=== PATIENT | female | born 1960 | race Caucasian/White ===

== ENCOUNTER 2024-03-29 08:30 | Inpatient (IN) | payer OTHER ==
[~2024-03-29] VITALS: Ht 170.2 cm; Wt 58.5 kg
[2024-03-29 10:10] LABS: APTT 30 SECONDS (22-32); BASOPHILS % (AUTO) 0.7 % (0-1); EOSINOPHILS % (AUTO) 0.2 % (0-6); HEMATOCRIT 30.8 % (35.0-45.0); HEMOGLOBIN 10.5 g/dl (12.0-16.0); INR 1.1 INR; LYMPHOCYTES # (AUTO) 0.5 X10'3 (1.1-4.8); LYMPHOCYTES % (AUTO) 9.2 % (21-51); MEAN CORPUSCULAR HEMOGLOBIN 34.5 PG (27.0-31.0); MEAN CORPUSCULAR HGB CONC 34.2 g/dL (33.0-36.5); MEAN CORPUSCULAR VOLUME 100.8 FL (78-98); MEAN PLATELET VOLUME 6.7 FL (7.4-10.4); MONOCYTES # (AUTO) 0.5 X10'3 (0-0.9); NEUTROPHILS # (AUTO) 4.7 X10'3 (1.8-7.7); NEUTROPHILS % (AUTO) 80.9 % (42-75); PLATELET COUNT 290 X10'3 (140-440); PROTHROMBIN TIME 11.9 SECONDS (9.0-12.0); RED BLOOD COUNT 3.05 X10'6 (4.20-5.60); RED CELL DISTRIBUTION WIDTH 13.7 % (11.5-14.5); WHITE BLOOD COUNT 5.8 X10'3 (4.5-11.0)
[2024-03-29 10:12] LABS: ALBUMIN 3.1 G/DL (3.4-5.0); ANION GAP 7 (8-16); BLOOD UREA NITROGEN 15 MG/DL (7-18); CALCIUM 8.9 MG/DL (8.5-10.1); CHLORIDE 93 MMOL/L (99-107); CREATININE 0.75 MG/DL (0.40-0.90); GLUCOSE 129 MG/DL (70-104); POTASSIUM 4.1 MMOL/L (3.5-5.1); SODIUM 128 MMOL/L (135-145); eCRCL 72 ML/MIN; eGFR 78 ML/MIN
[2024-03-29] MEDS ORDERED: HYDR-3973 PO (10:52)
[2024-03-29] MEDS ORDERED: LISI1TAB49 PO (10:52)
[2024-03-29] MEDS ORDERED: ACET-2119 PO (10:52)
[2024-03-29] MEDS ORDERED: potassium Cl 20 mEq SR tablet PO PRN ×2 (11:10)
[2024-03-29] MEDS ORDERED: potassium Cl 40MEQ/1/2NS 520ml 520 ML IV PRN (11:10)
[2024-03-29] MEDS ORDERED: acetaminophen 325mg tablet PO PRN (11:10)
[2024-03-29] MEDS ORDERED: mag hydrox/Alum hydrox/simeth 30ml oral suspension PO PRN (11:10)
[2024-03-29] MEDS ORDERED: magnesium hydroxide 30ml (MOM) UD suspension PO PRN (11:10)
[2024-03-29] MEDS: ondansetron/PF 4mg/2ml inj IV PRN (11:26)
[2024-03-29] MEDS: morphine 2 MG/ML inj. syringe IV PRN (11:26)
[2024-03-29] MEDS ORDERED: MIRA50TA PO (11:30)
[2024-03-29] MEDS: normal saline 1000ml 1,000 ML IV SCH (11:54)
[2024-03-29 12:08] LABS: BILIRUBIN,URINE NEGATIVE (Neg); CLARITY,URINE CLEAR (Clear); COLOR,URINE YELLOW (Yellow); GLUCOSE, URINE NEGATIVE (Neg); KETONES,URINE NEGATIVE (Neg); LEUKOCYTE ESTERASE ,URINE NEGATIVE (Neg); NITRITES, URINE NEGATIVE (Neg); OCCULT BLOOD,URINE NEGATIVE (Neg); PROTEIN,URINE NEGATIVE (Neg)
[2024-03-29 12:13] LABS: UA COLLECTION TYPE NON-SPECIFIED
[2024-03-29] MEDS ORDERED: hydrALAZINE 20mg/ml inj. IV PRN (12:50)
[2024-03-29 13:37] LABS: OSMOLALITY 270 MOSM/K (280-300)
[2024-03-29] MEDS: HYDROmorphone inj. 0.5 MG/0.5 ML DISP.SYRIN IV PRN (14:50)
[2024-03-29] MEDS: vancomycin/NS 1 GM ADD-VANTAGE 250 ML IV ONE (17:50)
[2024-03-29] MEDS: ringers solution, lacted 1,000 ML IV ONE (19:56)
[2024-03-29] MEDS: K and/or MAG REPLACEMENT MC SCH (20:00)
[2024-03-29] MEDS: docusate sod 100mg capsule PO SCH (20:04)
[2024-03-29] MEDS: nicotine 14mg patch - 24hr TD ONE (23:35)
[2024-03-30] VITALS (20 sets, daily range): BP systolic 98–161; BP diastolic 59–104; PULSE 63–102; RESP 11–21; TEMP 97.2–97.7; O2SAT 93–100
[2024-03-30 02:33] LABS: BASOPHILS % (AUTO) 0.6 % (0-1); EOSINOPHILS # (AUTO) 0.1 X10'3 (0-0.9); EOSINOPHILS % (AUTO) 1.8 % (0-6); HEMOGLOBIN 8.4 g/dl (12.0-16.0); LYMPHOCYTES # (AUTO) 0.8 X10'3 (1.1-4.8); LYMPHOCYTES % (AUTO) 19.8 % (21-51); MEAN CORPUSCULAR HEMOGLOBIN 34.6 PG (27.0-31.0); MEAN CORPUSCULAR HGB CONC 33.4 g/dL (33.0-36.5); MEAN CORPUSCULAR VOLUME 103.5 FL (78-98); MEAN PLATELET VOLUME 6.8 FL (7.4-10.4); MONOCYTES # (AUTO) 0.4 X10'3 (0-0.9); MONOCYTES % (AUTO) 10.4 % (2-12); NEUTROPHILS # (AUTO) 2.6 X10'3 (1.8-7.7); NEUTROPHILS % (AUTO) 67.4 % (42-75); PLATELET COUNT 238 X10'3 (140-440); RED BLOOD COUNT 2.42 X10'6 (4.20-5.60); RED CELL DISTRIBUTION WIDTH 13.6 % (11.5-14.5); WHITE BLOOD COUNT 3.9 X10'3 (4.5-11.0)
[2024-03-30 03:02] LABS: ALANINE AMINOTRANSFERASE 32 U/L (12-78); ALBUMIN 1.9 G/DL (3.4-5.0); ALBUMIN/GLOBULIN RATIO 0.6 (1.1-1.5); ALKALINE PHOSPHATASE 117 IU/L (46-116); ANION GAP 5 (8-16); ASPARTATE AMINO TRANSFERASE 56 U/L (10-37); BILIRUBIN,TOTAL 0.7 MG/DL (0.1-1.0); BLOOD UREA NITROGEN 13 MG/DL (7-18); CALCIUM 6.5 MG/DL (8.5-10.1); CHLORIDE 106 MMOL/L (99-107); CREATININE 0.65 MG/DL (0.40-0.90); GLUCOSE 100 MG/DL (70-104); POTASSIUM 3.5 MMOL/L (3.5-5.1); SODIUM 135 MMOL/L (135-145); TOTAL CARBON DIOXIDE 24.5 MMOL/L (24-32); TOTAL PROTEIN 4.9 G/DL (6.4-8.2); eCRCL 83 ML/MIN; eGFR > 90 ML/MIN
[2024-03-30] MEDS: magnesium sulf-water 2g/50mL 50 ML IV PRN (03:34)
[2024-03-30] MEDS: nicotine 14mg patch - 24hr TD ONE (04:40)
[2024-03-30] MEDS ORDERED: ATEN-169 PO (06:23)
[2024-03-30] MEDS: magnesium sulf-water 4G/100mL 100 ML IV PRN (06:25)
[2024-03-30] MEDS: famotidine 20mg tablet PO ONE (06:25)
[2024-03-30] MEDS ORDERED: morphine 2 MG/ML inj. syringe IV PRN (06:45)
[2024-03-30] MEDS ORDERED: labetalol 20mg/4ml (5mg/ml) syringe IV PRN (06:45)
[2024-03-30] MEDS ORDERED: ondansetron/PF 4mg/2ml inj IV PRN (06:45)
[2024-03-30] MEDS ORDERED: fentaNYL/PF 50MCG/1 ML 2ML syringe IV PRN ×2 (06:45)
[2024-03-30] MEDS ORDERED: hydrALAZINE 20mg/ml inj. IV PRN (06:45)
[2024-03-30] MEDS: ringers solution, lacted 1,000 ML IV SCH (07:36)
[2024-03-30] MEDS: ceFAZolin 2gm in dextrose, iso 50 ML IV ONE (07:37)
[2024-03-30] MEDS ORDERED: sevoflurane 250ml liquid IH ONE (08:18)
[2024-03-30] MEDS ORDERED: fentaNYL/PF 50MCG/1 ML 2ML syringe ONE (08:24)
[2024-03-30] MEDS ORDERED: midazolam 1 mg/ML 2ml injection ONE (08:25)
[2024-03-30] MEDS ORDERED: rocuronium 10mg/ml inj IV ONE (08:26)
[2024-03-30] MEDS ORDERED: dexamethasone sod phosphate 4mg/ml inj. ONE (09:29)
[2024-03-30] MEDS ORDERED: propofol inj 20 ML IV ONE (09:29)
[2024-03-30] MEDS ORDERED: albumin (Human) 5% 250ml 250 ML IV ONE (09:30)
[2024-03-30] MEDS ORDERED: vancomycin 1,000mg inj ONE (10:16)
[2024-03-30] MEDS ORDERED: naloxone 0.4 mg/ml inj IV PRN (10:50)
[2024-03-30] MEDS ORDERED: NORMAL SALINE IV ONE (10:50)
[2024-03-30] MEDS ORDERED: TRANEXAMIC ACID IV ONE (10:50)
[2024-03-30] MEDS: morphine 4 MG/ML inj SYRINge IV PRN (11:34)
[2024-03-30] MEDS ORDERED: acetaminophen 325mg tablet PO PRN (11:55)
[2024-03-30] MEDS ORDERED: HYDROcodone/acetaminophen 10/325mg tab PO PRN (11:55)
[2024-03-30] MEDS: NORMAL SALINE IV ONE (14:08)
[2024-03-30] MEDS: TRANEXAMIC ACID IV ONE (14:08)
[2024-03-30] MEDS: HYDROcodone/acetaminophen 10/325mg tab PO PRN (15:52)
[2024-03-30] MEDS: ceFAZolin/D5W- 1GM premix 50 ML IV SCH (16:21)
[2024-03-30] MEDS: heparin, porcine 5000 units/ml vial SQ SCH (20:00)
[2024-03-30] MEDS: MYRBETRIC 50 MG PO SCH (21:00)
[2024-03-30] MEDS: vancomycin/NS 1 GM ADD-VANTAGE 250 ML IV SCH (21:09)
[2024-03-31 02:03] VITALS: BP 89/70; PULSE 79; RESP 16; TEMP 98.5; O2SAT 94
[2024-03-31 06:02] LABS: BASOPHILS # (AUTO) 0.1 X10'3 (0-0.2); BASOPHILS % (AUTO) 0.8 % (0-1); EOSINOPHILS % (AUTO) 0.2 % (0-6); HEMATOCRIT 23.9 % (35.0-45.0); HEMOGLOBIN 8.1 g/dl (12.0-16.0); LYMPHOCYTES # (AUTO) 0.8 X10'3 (1.1-4.8); LYMPHOCYTES % (AUTO) 10.6 % (21-51); MEAN PLATELET VOLUME 7.1 FL (7.4-10.4); MONOCYTES # (AUTO) 0.5 X10'3 (0-0.9); MONOCYTES % (AUTO) 7.1 % (2-12); NEUTROPHILS # (AUTO) 5.8 X10'3 (1.8-7.7); NEUTROPHILS % (AUTO) 81.3 % (42-75); PLATELET COUNT 241 X10'3 (140-440); RED BLOOD COUNT 2.32 X10'6 (4.20-5.60); RED CELL DISTRIBUTION WIDTH 13.7 % (11.5-14.5); WHITE BLOOD COUNT 7.1 X10'3 (4.5-11.0)
[2024-03-31 06:29] LABS: ALBUMIN 2.4 G/DL (3.4-5.0); ALBUMIN/GLOBULIN RATIO 0.7 (1.1-1.5); ANION GAP 7 (8-16); ASPARTATE AMINO TRANSFERASE 48 U/L (10-37); BILIRUBIN,TOTAL 0.4 MG/DL (0.1-1.0); BLOOD UREA NITROGEN 13 MG/DL (7-18); BUN/CREATININE RATIO 12.4 (10.0-20.0); CALCIUM 8.6 MG/DL (8.5-10.1); CHLORIDE 99 MMOL/L (99-107); CREATININE 1.05 MG/DL (0.40-0.90); GLUCOSE 214 MG/DL (70-104); MAGNESIUM 1.8 MG/DL (1.5-2.4); POTASSIUM 4.9 MMOL/L (3.5-5.1); SODIUM 131 MMOL/L (135-145); TOTAL CARBON DIOXIDE 25.1 MMOL/L (24-32); TOTAL PROTEIN 5.9 G/DL (6.4-8.2); eCRCL 51 ML/MIN; eGFR 53 ML/MIN
[2024-03-31 06:30] VITALS: BP 128/71; PULSE 68; RESP 16; TEMP 97.6; O2SAT 98
[2024-03-31 06:30] LABS: ALANINE AMINOTRANSFERASE 32 U/L (12-78); ALKALINE PHOSPHATASE 128 IU/L (46-116)
[2024-03-31] MEDS: HYDROchlorothiazide 12.5mg capsule PO SCH (06:54)
[2024-03-31] MEDS: nicotine 14mg patch - 24hr TD ONE (06:54)
[2024-03-31] MEDS: atenolol 25mg tablet PO SCH (06:55)
[2024-03-31] MEDS: lisinopril 10 MG tablet PO SCH (06:55)
[2024-03-31 08:00] VITALS: RESP 16; O2SAT 98
[2024-03-31] MEDS ORDERED: morphine 2 MG/ML inj. syringe IV PRN (09:55)
[2024-03-31 10:00] VITALS: BP_SYST 115; BP_SYST 121; BP_DIAS 64; BP_DIAS 66; PULSE 80; RESP 16; TEMP 97.8; O2SAT 100
[2024-03-31 18:00] VITALS: BP 142/72; PULSE 81; RESP 16; TEMP 98.5; O2SAT 100
[2024-03-31 22:00] VITALS: BP 126/68; PULSE 83; RESP 16; TEMP 98.1; O2SAT 96
[2024-04-01 05:41] LABS: BASOPHILS % (AUTO) 0.3 % (0-1); EOSINOPHILS # (AUTO) 0.1 X10'3 (0-0.9); HEMOGLOBIN 7.4 g/dl (12.0-16.0); LYMPHOCYTES % (AUTO) 13.5 % (21-51); MEAN CORPUSCULAR HEMOGLOBIN 34.9 PG (27.0-31.0); MEAN CORPUSCULAR HGB CONC 33.7 g/dL (33.0-36.5); MEAN CORPUSCULAR VOLUME 103.5 FL (78-98); MONOCYTES # (AUTO) 0.6 X10'3 (0-0.9); MONOCYTES % (AUTO) 8.3 % (2-12); NEUTROPHILS # (AUTO) 5.5 X10'3 (1.8-7.7); NEUTROPHILS % (AUTO) 76.9 % (42-75); PLATELET COUNT 208 X10'3 (140-440); RED BLOOD COUNT 2.12 X10'6 (4.20-5.60); RED CELL DISTRIBUTION WIDTH 13.8 % (11.5-14.5); WHITE BLOOD COUNT 7.1 X10'3 (4.5-11.0)
[2024-04-01 05:46] LABS: HEMATOCRIT 21.9 % (35.0-45.0)
[2024-04-01 05:58] LABS: ALANINE AMINOTRANSFERASE 34 U/L (12-78); ALBUMIN 2.3 G/DL (3.4-5.0); ALBUMIN/GLOBULIN RATIO 0.7 (1.1-1.5); ALKALINE PHOSPHATASE 117 IU/L (46-116); ANION GAP 4 (8-16); ASPARTATE AMINO TRANSFERASE 75 U/L (10-37); BILIRUBIN,TOTAL 0.4 MG/DL (0.1-1.0); BLOOD UREA NITROGEN 11 MG/DL (7-18); CALCIUM 8.1 MG/DL (8.5-10.1); CHLORIDE 101 MMOL/L (99-107); CREATININE 0.61 MG/DL (0.40-0.90); GLUCOSE 107 MG/DL (70-104); MAGNESIUM 1.4 MG/DL (1.5-2.4); POTASSIUM 4.4 MMOL/L (3.5-5.1); SODIUM 132 MMOL/L (135-145); TOTAL CARBON DIOXIDE 26.6 MMOL/L (24-32); TOTAL PROTEIN 5.6 G/DL (6.4-8.2); eCRCL 88 ML/MIN; eGFR > 90 ML/MIN
[2024-04-01 06:00] VITALS: BP 150/79; PULSE 91; RESP 16; TEMP 97.8; O2SAT 98
[2024-04-01] MEDS: magnesium Cl slow-release 64mg tablet PO PRN (07:29)
[2024-04-01 07:31] VITALS: BP_SYST 150; PULSE 91
[2024-04-01 08:00] VITALS: RESP 16; O2SAT 97
[2024-04-01] MEDS ORDERED: LISI10TA27 PO (10:33)
[2024-04-01 10:36] VITALS: RESP 16
[2024-04-01] MEDS ORDERED: NICO-631 TOP (10:49)
[2024-04-01] MEDS ORDERED: ASPI81TA52 PO (10:49)
== END 2024-04-01 11:00 | disposition home health service (06) | DRG 521 ==
LOC: ER 08:31 → ED HOLD 10:37 → PACU 03-30 10:49 → ORTHO 4S 03-30 17:00
PROVIDERS: ADMIT Family Medicine; ATTEND Family Medicine
PROC: 0SRS0J9 Replacement of Left Hip Joint, Femoral Surface with Synthetic Substitute, Cemented, Open Approach (ICD-10-PCS; principal; 2024-03-30 08:18)
DX: M80.052A Age-related osteoporosis with current pathological fracture, left femur, initial encounter for fracture (principal); E43 Unspecified severe protein-calorie malnutrition; E87.1 Hypo-osmolality and hyponatremia; G62.89 Other specified polyneuropathies; D53.9 Nutritional anemia, unspecified; I10 Essential (primary) hypertension; F17.210 Nicotine dependence, cigarettes, uncomplicated; W18.39XA Other fall on same level, initial encounter; M54.9 Dorsalgia, unspecified; Z98.1 Arthrodesis status; Y93.89 Activity, other specified; Y92.89 Other specified places as the place of occurrence of the external cause; Y99.8 Other external cause status; Z68.20 Body mass index [BMI] 20.0-20.9, adult
CPT/HCPCS: 99285; Z7506; Z7508; 36415; 71045; 72170; 73502; 80048; 80053; 81003; 82948; 83735; 83930; 85025; 85610; 85730; 86885; 86900; 86901; 87081; 93005; 97110; 97161; 97530; A4215; A4618; A6253; A6258; A6449; A7000; C1713; C1758; C1776; G0378; J0690; J1100; J1171; J1644; J2250; J2270; J2405; J2704; J2710; J3010; J3370; J3475; J3490; J7030; J7120; P9045

== ENCOUNTER 2024-04-17 13:35 | Inpatient (IN) | payer OTHER ==
[~2024-04-17] VITALS: Ht 170.2 cm; Wt 56.8 kg
[~2024-04-17 13:35] MED LIST: ACET-2119 PO; ASPI81TA52 PO; ATEN-169 PO; HYDR-3973 PO; LISI10TA27 PO; MIRA50TA PO; NICO-631 TOP
[2024-04-17 15:34] LABS: BASOPHILS % (AUTO) 0.6 % (0-1); EOSINOPHILS # (AUTO) 0.1 X10'3 (0-0.9); EOSINOPHILS % (AUTO) 1.4 % (0-6); HEMATOCRIT 28.7 % (35.0-45.0); HEMOGLOBIN 9.6 g/dl (12.0-16.0); LYMPHOCYTES # (AUTO) 1.5 X10'3 (1.1-4.8); LYMPHOCYTES % (AUTO) 22.4 % (21-51); MEAN CORPUSCULAR HEMOGLOBIN 34.4 PG (27.0-31.0); MEAN CORPUSCULAR HGB CONC 33.5 g/dL (33.0-36.5); MEAN CORPUSCULAR VOLUME 102.9 FL (78-98); MEAN PLATELET VOLUME 7.6 FL (7.4-10.4); MONOCYTES # (AUTO) 0.6 X10'3 (0-0.9); MONOCYTES % (AUTO) 8.9 % (2-12); NEUTROPHILS # (AUTO) 4.4 X10'3 (1.8-7.7); NEUTROPHILS % (AUTO) 66.7 % (42-75); PLATELET COUNT 189 X10'3 (140-440); RED BLOOD COUNT 2.79 X10'6 (4.20-5.60); RED CELL DISTRIBUTION WIDTH 14.5 % (11.5-14.5); WHITE BLOOD COUNT 6.6 X10'3 (4.5-11.0)
[2024-04-17 15:51] LABS: ALBUMIN 3.1 G/DL (3.4-5.0); ANION GAP 13 (8-16); BLOOD UREA NITROGEN 8 MG/DL (7-18); BUN/CREATININE RATIO 8.6 (10.0-20.0); CALCIUM 7.7 MG/DL (8.5-10.1); CHLORIDE 97 MMOL/L (99-107); CREATININE 0.93 MG/DL (0.40-0.90); GLUCOSE 89 MG/DL (70-104); POTASSIUM 3.7 MMOL/L (3.5-5.1); SODIUM 133 MMOL/L (135-145); TOTAL CARBON DIOXIDE 22.7 MMOL/L (24-32); eCRCL 56 ML/MIN; eGFR 61 ML/MIN
[2024-04-17 16:05] LABS: APTT 31 SECONDS (22-32); INR 1.2 INR; PROTHROMBIN TIME 12.7 SECONDS (9.0-12.0)
[2024-04-17] MEDS ORDERED: magnesium hydroxide 30ml (MOM) UD suspension PO PRN (17:05)
[2024-04-17] MEDS ORDERED: ondansetron 4mg rapidly disintigrating tab PO PRN (17:05)
[2024-04-17] MEDS ORDERED: ondansetron/PF 4mg/2ml inj IV PRN (17:05)
[2024-04-17] MEDS ORDERED: morphine 2 MG/ML inj. syringe IV PRN (17:05)
[2024-04-17] MEDS ORDERED: mag hydrox/Alum hydrox/simeth 30ml oral suspension PO PRN (17:05)
[2024-04-17] MEDS ORDERED: diphenhydrAMINE 25mg capsule PO PRN (17:05)
[2024-04-17] MEDS ORDERED: bisacodyl 10mg suppository rectal RC PRN (17:05)
[2024-04-17] MEDS ORDERED: acetaminophen 325mg tablet PO PRN ×2 (17:05)
[2024-04-17] MEDS ORDERED: diphenhydrAMINE 50 mg/ml inj IV PRN (17:05)
[2024-04-17] MEDS ORDERED: acetaminophen 650mg rectal suppository RC PRN (17:05)
[2024-04-17] MEDS ORDERED: HYDROcodone/acetaminophen 5mg/325mg tablet PO PRN (17:05)
[2024-04-17] MEDS: normal saline 1000ml 1,000 ML IV SCH (17:49)
[2024-04-17 18:02] LABS: MAGNESIUM 1.3 MG/DL (1.5-2.4); PHOSPHORUS 4.5 MG/DL (2.3-4.5); PRO BRAIN NATRIURETIC PEPTIDE 654 PG/ML (0-125)
[2024-04-17] MEDS: docusate sod 100mg capsule PO SCH (19:54)
[2024-04-17 20:00] VITALS: RESP 18; O2SAT 98
[2024-04-17] MEDS: HYDROcodone/acetaminophen 10/325mg tab PO PRN (20:07)
[2024-04-17] MEDS ORDERED: temazepam 15mg capsule PO PRN (21:00)
[2024-04-17 22:00] VITALS: BP 115/70; PULSE 81; RESP 18; TEMP 98.7; O2SAT 98
[2024-04-18] VITALS (22 sets, daily range): BP systolic 101–140; BP diastolic 57–75; PULSE 59–89; RESP 8–18; TEMP 98–98.7; O2SAT 92–100
[2024-04-18] MEDS: morphine 2 MG/ML inj. syringe IV PRN (04:08)
[2024-04-18 05:43] LABS: BASOPHILS % (AUTO) 0.8 % (0-1); EOSINOPHILS # (AUTO) 0.1 X10'3 (0-0.9); EOSINOPHILS % (AUTO) 2.6 % (0-6); HEMATOCRIT 27.6 % (35.0-45.0); HEMOGLOBIN 9.1 g/dl (12.0-16.0); LYMPHOCYTES # (AUTO) 1.3 X10'3 (1.1-4.8); LYMPHOCYTES % (AUTO) 27.6 % (21-51); MEAN CORPUSCULAR HEMOGLOBIN 34.5 PG (27.0-31.0); MEAN CORPUSCULAR HGB CONC 33.1 g/dL (33.0-36.5); MEAN CORPUSCULAR VOLUME 104.2 FL (78-98); MEAN PLATELET VOLUME 7.6 FL (7.4-10.4); MONOCYTES # (AUTO) 0.5 X10'3 (0-0.9); MONOCYTES % (AUTO) 11.2 % (2-12); NEUTROPHILS # (AUTO) 2.7 X10'3 (1.8-7.7); NEUTROPHILS % (AUTO) 57.8 % (42-75); PLATELET COUNT 165 X10'3 (140-440); RED BLOOD COUNT 2.65 X10'6 (4.20-5.60); RED CELL DISTRIBUTION WIDTH 14.5 % (11.5-14.5); WHITE BLOOD COUNT 4.7 X10'3 (4.5-11.0)
[2024-04-18 06:06] LABS: ALANINE AMINOTRANSFERASE 29 U/L (12-78); ALBUMIN 2.6 G/DL (3.4-5.0); ALBUMIN/GLOBULIN RATIO 0.7 (1.1-1.5); ALKALINE PHOSPHATASE 175 IU/L (46-116); ANION GAP 6 (8-16); ASPARTATE AMINO TRANSFERASE 79 U/L (10-37); BILIRUBIN,TOTAL 0.6 MG/DL (0.1-1.0); BLOOD UREA NITROGEN 14 MG/DL (7-18); BUN/CREATININE RATIO 19.4 (10.0-20.0); CALCIUM 7.9 MG/DL (8.5-10.1); CHLORIDE 100 MMOL/L (99-107); CREATININE 0.72 MG/DL (0.40-0.90); GLUCOSE 103 MG/DL (70-104); SODIUM 133 MMOL/L (135-145); TOTAL CARBON DIOXIDE 27.3 MMOL/L (24-32); TOTAL PROTEIN 6.2 G/DL (6.4-8.2); eCRCL 73 ML/MIN; eGFR 82 ML/MIN
[2024-04-18] MEDS: CefTRIAXone/D5W-Rocephin 1gm 50 ML IV SCH (07:17)
[2024-04-18] MEDS ORDERED: VANCOMYCIN 1GM 200ML H20 (PEG) 200 ML IV SCH (08:00)
[2024-04-18] MEDS ORDERED: enalaprilat 1.25mg/ml 2ml vial IV PRN (09:40)
[2024-04-18] MEDS ORDERED: labetalol 20mg/4ml (5mg/ml) syringe IV PRN (09:40)
[2024-04-18] MEDS ORDERED: morphine 4 MG/ML inj SYRINge IV PRN (09:40)
[2024-04-18] MEDS ORDERED: ondansetron/PF 4mg/2ml inj IV PRN ×2 (09:40→12:10)
[2024-04-18] MEDS ORDERED: morphine 2 MG/ML inj. syringe IV PRN (09:40)
[2024-04-18] MEDS: ringers solution, lacted 1,000 ML IV SCH (09:40)
[2024-04-18] MEDS ORDERED: proCHLORperazine 10 MG/2 ml inj IV PRN (09:40)
[2024-04-18] MEDS ORDERED: meperidine/PF 25mg/ml syringe IV PRN ×3 (09:40)
[2024-04-18] MEDS: vancomycin/NS 1 GM ADD-VANTAGE 250 ML IV SCH ×2 (09:41→20:32)
[2024-04-18] MEDS ORDERED: vancomycin 1,000mg inj ONE (10:16)
[2024-04-18] MEDS ORDERED: tobramycin sulfate 1.2gm vial ONE (10:16)
[2024-04-18] MEDS ORDERED: MIDAZolam 1 MG/ML 5ML VIAL ONE (10:45)
[2024-04-18] MEDS ORDERED: fentaNYL/PF 50MCG/1 ML 2ML syringe ONE (10:45)
[2024-04-18] MEDS ORDERED: BUPIVAcaine/dex-water/PF 7.5 mg/ml 2ml ampul ONE (10:52)
[2024-04-18] MEDS ORDERED: mupirocin 2% ointment 22GM ONE (11:57)
[2024-04-18] MEDS: tobramycin sulfate 1.2gm vial TP ONE (12:08)
[2024-04-18] MEDS ORDERED: oxyCODONE IR 5mg (immed. release) tablet PO PRN (12:10)
[2024-04-18] MEDS ORDERED: bisacodyl 10mg suppository rectal RC PRN (12:10)
[2024-04-18] MEDS ORDERED: magnesium hydroxide 30ml (MOM) UD suspension PO PRN (12:10)
[2024-04-18] MEDS ORDERED: naloxone 0.4 mg/ml inj IV PRN (12:10)
[2024-04-18] MEDS ORDERED: acetaminophen 325mg tablet PO PRN (12:10)
[2024-04-18] MEDS ORDERED: vancomycin/NS 1 GM ADD-VANTAGE 250 ML IV SCH (13:05)
[2024-04-18] MEDS: potassium Cl 20mEq in NS 1,000 ML IV SCH (16:08)
[2024-04-18] MEDS: ceFAZolin/D5W- 1GM premix 50 ML IV SCH (16:14)
[2024-04-18] MEDS: HYDROcodone/acetaminophen 10/325mg tab PO PRN (18:37)
[2024-04-19 06:20] LABS: BASOPHILS % (AUTO) 0.6 % (0-1); EOSINOPHILS # (AUTO) 0.1 X10'3 (0-0.9); EOSINOPHILS % (AUTO) 2.3 % (0-6); HEMATOCRIT 26.8 % (35.0-45.0); HEMOGLOBIN 9.1 g/dl (12.0-16.0); LYMPHOCYTES # (AUTO) 0.7 X10'3 (1.1-4.8); LYMPHOCYTES % (AUTO) 16.2 % (21-51); MEAN CORPUSCULAR HEMOGLOBIN 35.8 PG (27.0-31.0); MEAN CORPUSCULAR VOLUME 105.2 FL (78-98); MONOCYTES # (AUTO) 0.5 X10'3 (0-0.9); MONOCYTES % (AUTO) 10.4 % (2-12); NEUTROPHILS # (AUTO) 3.2 X10'3 (1.8-7.7); NEUTROPHILS % (AUTO) 70.5 % (42-75); PLATELET COUNT 158 X10'3 (140-440); RED BLOOD COUNT 2.55 X10'6 (4.20-5.60); RED CELL DISTRIBUTION WIDTH 14.4 % (11.5-14.5); WHITE BLOOD COUNT 4.5 X10'3 (4.5-11.0)
[2024-04-19 06:36] VITALS: BP 140/86; PULSE 81; RESP 18; TEMP 97.8; O2SAT 98
[2024-04-19 06:49] LABS: ALANINE AMINOTRANSFERASE 27 U/L (12-78); ALBUMIN 2.4 G/DL (3.4-5.0); ALBUMIN/GLOBULIN RATIO 0.7 (1.1-1.5); ALKALINE PHOSPHATASE 160 IU/L (46-116); ANION GAP 9 (8-16); ASPARTATE AMINO TRANSFERASE 71 U/L (10-37); BILIRUBIN,TOTAL 0.3 MG/DL (0.1-1.0); BLOOD UREA NITROGEN 12 MG/DL (7-18); CALCIUM 8.7 MG/DL (8.5-10.1); CHLORIDE 102 MMOL/L (99-107); CREATININE 0.63 MG/DL (0.40-0.90); GLUCOSE 136 MG/DL (70-104); POTASSIUM 4.2 MMOL/L (3.5-5.1); SODIUM 134 MMOL/L (135-145); eCRCL 83 ML/MIN; eGFR > 90 ML/MIN
[2024-04-19 08:00] VITALS: RESP 16
[2024-04-19] MEDS: vancomycin/NS 1 GM ADD-VANTAGE 250 ML IV SCH (09:37)
[2024-04-19 10:00] VITALS: BP 133/76; PULSE 86; RESP 17; TEMP 98; O2SAT 99
[2024-04-19 19:00] VITALS: BP 149/84; PULSE 93; RESP 20; TEMP 97.8; O2SAT 99
[2024-04-19] MEDS: magnesium Cl slow-release 64mg tablet PO PRN (19:11)
[2024-04-19] MEDS: VANCOMYCIN LEVEL IV ONE (20:28)
[2024-04-19] MEDS: oxyCODONE IR 5mg (immed. release) tablet PO PRN (21:15)
[2024-04-19 22:00] VITALS: BP 157/82; PULSE 96; RESP 18; TEMP 98.8; O2SAT 98
[2024-04-20] MEDS ORDERED: HYDR12.55 PO (00:08)
[2024-04-20] MEDS ORDERED: LISI20TA28 PO (00:08)
[2024-04-20 06:00] VITALS: BP 162/97; PULSE 85; RESP 16; TEMP 98; O2SAT 98
[2024-04-20 06:03] LABS: BASOPHILS # (AUTO) 0.1 X10'3 (0-0.2); BASOPHILS % (AUTO) 1.1 % (0-1); EOSINOPHILS # (AUTO) 0.1 X10'3 (0-0.9); EOSINOPHILS % (AUTO) 1.4 % (0-6); HEMATOCRIT 29.5 % (35.0-45.0); HEMOGLOBIN 9.9 g/dl (12.0-16.0); LYMPHOCYTES # (AUTO) 0.8 X10'3 (1.1-4.8); LYMPHOCYTES % (AUTO) 15.1 % (21-51); MEAN CORPUSCULAR HEMOGLOBIN 35.1 PG (27.0-31.0); MEAN CORPUSCULAR HGB CONC 33.6 g/dL (33.0-36.5); MEAN CORPUSCULAR VOLUME 104.4 FL (78-98); MEAN PLATELET VOLUME 7.8 FL (7.4-10.4); MONOCYTES # (AUTO) 0.5 X10'3 (0-0.9); MONOCYTES % (AUTO) 9.8 % (2-12); NEUTROPHILS # (AUTO) 3.6 X10'3 (1.8-7.7); NEUTROPHILS % (AUTO) 72.6 % (42-75); PLATELET COUNT 173 X10'3 (140-440); RED BLOOD COUNT 2.82 X10'6 (4.20-5.60); RED CELL DISTRIBUTION WIDTH 14.5 % (11.5-14.5)
[2024-04-20 06:28] LABS: ALANINE AMINOTRANSFERASE 29 U/L (12-78); ALBUMIN 2.4 G/DL (3.4-5.0); ALBUMIN/GLOBULIN RATIO 0.6 (1.1-1.5); ALKALINE PHOSPHATASE 189 IU/L (46-116); ANION GAP 8 (8-16); ASPARTATE AMINO TRANSFERASE 95 U/L (10-37); BILIRUBIN,TOTAL 0.5 MG/DL (0.1-1.0); BLOOD UREA NITROGEN 5 MG/DL (7-18); BUN/CREATININE RATIO 7.8 (10.0-20.0); CALCIUM 8.4 MG/DL (8.5-10.1); CHLORIDE 104 MMOL/L (99-107); CREATININE 0.64 MG/DL (0.40-0.90); GLUCOSE 108 MG/DL (70-104); MAGNESIUM 1.2 MG/DL (1.5-2.4); POTASSIUM 4.5 MMOL/L (3.5-5.1); SODIUM 135 MMOL/L (135-145); TOTAL CARBON DIOXIDE 23.3 MMOL/L (24-32); TOTAL PROTEIN 6.6 G/DL (6.4-8.2); eCRCL 82 ML/MIN; eGFR > 90 ML/MIN
[2024-04-20 07:51] VITALS: RESP 16
[2024-04-20 10:00] VITALS: BP 147/86; PULSE 88; RESP 20; TEMP 97.9; O2SAT 100
[2024-04-20] MEDS ORDERED: HYDROcodone/acetaminophen 10/325mg tab PO PRN (11:05)
[2024-04-20] MEDS ORDERED: acetaminophen 325mg tablet PO PRN (12:10)
[2024-04-20] MEDS: normal saline 500ml IV soln 500 ML IV SCH (12:20)
[2024-04-20] MEDS: HYDROcodone/acetaminophen 10/325mg tab PO PRN (15:49)
[2024-04-20] MEDS: lisinopril 20mg tablet PO SCH (17:16)
[2024-04-20 18:00] VITALS: BP 170/95; PULSE 88; RESP 16; TEMP 97.5; O2SAT 99
[2024-04-20 19:00] VITALS: RESP 16
[2024-04-20] MEDS: VANCOMYCIN/WATER FOR INJ (PEG) 750MG/150 ML IVPB IV SCH (20:50)
[2024-04-20] MEDS: diphenhydrAMINE 25mg capsule PO PRN (20:58)
[2024-04-20] MEDS: MIRABEGRON 50 MG PO SCH (21:00)
[2024-04-20 22:00] VITALS: BP 159/93; PULSE 86; RESP 15; TEMP 98.4; O2SAT 100
[2024-04-21] VITALS (7 sets, daily range): BP systolic 126–158; BP diastolic 72–87; PULSE 80–101; RESP 15–18; TEMP 96.5–98.7; O2SAT 97–99
[2024-04-21 04:57] LABS: BASOPHILS % (AUTO) 0.6 % (0-1); EOSINOPHILS # (AUTO) 0.1 X10'3 (0-0.9); EOSINOPHILS % (AUTO) 1.8 % (0-6); HEMATOCRIT 27.1 % (35.0-45.0); HEMOGLOBIN 9.1 g/dl (12.0-16.0); LYMPHOCYTES # (AUTO) 0.7 X10'3 (1.1-4.8); LYMPHOCYTES % (AUTO) 12.8 % (21-51); MEAN CORPUSCULAR HEMOGLOBIN 34.8 PG (27.0-31.0); MEAN CORPUSCULAR HGB CONC 33.6 g/dL (33.0-36.5); MEAN CORPUSCULAR VOLUME 103.5 FL (78-98); MEAN PLATELET VOLUME 7.4 FL (7.4-10.4); MONOCYTES # (AUTO) 0.5 X10'3 (0-0.9); MONOCYTES % (AUTO) 9.9 % (2-12); NEUTROPHILS % (AUTO) 74.9 % (42-75); PLATELET COUNT 154 X10'3 (140-440); RED BLOOD COUNT 2.62 X10'6 (4.20-5.60); RED CELL DISTRIBUTION WIDTH 14.2 % (11.5-14.5); WHITE BLOOD COUNT 5.4 X10'3 (4.5-11.0)
[2024-04-21 05:15] LABS: ALANINE AMINOTRANSFERASE 32 U/L (12-78); ALBUMIN 2.1 G/DL (3.4-5.0); ALBUMIN/GLOBULIN RATIO 0.5 (1.1-1.5); ALKALINE PHOSPHATASE 169 IU/L (46-116); ANION GAP 8 (8-16); ASPARTATE AMINO TRANSFERASE 90 U/L (10-37); BILIRUBIN,TOTAL 0.7 MG/DL (0.1-1.0); BLOOD UREA NITROGEN 7 MG/DL (7-18); BUN/CREATININE RATIO 9.7 (10.0-20.0); CALCIUM 8.2 MG/DL (8.5-10.1); CHLORIDE 101 MMOL/L (99-107); CREATININE 0.72 MG/DL (0.40-0.90); GLUCOSE 163 MG/DL (70-104); POTASSIUM 4.8 MMOL/L (3.5-5.1); SODIUM 133 MMOL/L (135-145); TOTAL CARBON DIOXIDE 24.5 MMOL/L (24-32); eCRCL 73 ML/MIN; eGFR 82 ML/MIN
[2024-04-21 05:54] LABS: MAGNESIUM 0.8 MG/DL (1.5-2.4)
[2024-04-21] MEDS ORDERED: lisinopril 20mg tablet PO SCH (08:00)
[2024-04-21] MEDS ORDERED: potassium Cl 40MEQ/1/2NS 520ml 520 ML IV PRN (08:10)
[2024-04-21] MEDS ORDERED: potassium Cl 20 mEq SR tablet PO PRN ×2 (08:10)
[2024-04-21] MEDS ORDERED: magnesium sulf-water 4G/100mL 100 ML IV PRN (08:10)
[2024-04-21] MEDS ORDERED: magnesium sulf-water 2g/50mL 50 ML IV PRN (08:10)
[2024-04-21] MEDS: magnesium sulf-water 4G/100mL 100 ML IV PRN (09:19)
[2024-04-21] MEDS: nicotine 14mg patch - 24hr TD ONE (13:07)
[2024-04-21] MEDS: magnesium sulf-water 2g/50mL 50 ML IV PRN (13:14)
[2024-04-21] MEDS: K and/or MAG REPLACEMENT MC SCH ×2 (20:00)
[2024-04-21] MEDS: apixaban 2.5mg tablet PO SCH (20:59)
[2024-04-22 06:34] VITALS: BP 149/85; PULSE 83; RESP 16; TEMP 97; O2SAT 100
[2024-04-22 07:18] LABS: EOSINOPHILS # (AUTO) 0.1 X10'3 (0-0.9); HEMOGLOBIN 9.3 g/dl (12.0-16.0); LYMPHOCYTES # (AUTO) 0.8 X10'3 (1.1-4.8); NEUTROPHILS # (AUTO) 4.1 X10'3 (1.8-7.7)
[2024-04-22 07:20] VITALS: RESP 16; O2SAT 100
[2024-04-22 07:21] LABS: BASOPHILS % (AUTO) 0.5 % (0-1); EOSINOPHILS % (AUTO) 2.1 % (0-6); HEMATOCRIT 26.6 % (35.0-45.0); LYMPHOCYTES % (AUTO) 13.9 % (21-51); MEAN CORPUSCULAR HEMOGLOBIN 35.9 PG (27.0-31.0); MEAN CORPUSCULAR HGB CONC 34.8 g/dL (33.0-36.5); MEAN CORPUSCULAR VOLUME 103.4 FL (78-98); MEAN PLATELET VOLUME 7.8 FL (7.4-10.4); MONOCYTES # (AUTO) 0.8 X10'3 (0-0.9); MONOCYTES % (AUTO) 13.4 % (2-12); NEUTROPHILS % (AUTO) 70.1 % (42-75); PLATELET COUNT 185 X10'3 (140-440); RED BLOOD COUNT 2.57 X10'6 (4.20-5.60); RED CELL DISTRIBUTION WIDTH 14.3 % (11.5-14.5); WHITE BLOOD COUNT 5.8 X10'3 (4.5-11.0)
[2024-04-22] MEDS: VANCOMYCIN LEVEL IV ONE (07:31)
[2024-04-22] MEDS: HYDROchlorothiazide 12.5mg capsule PO SCH (07:37)
[2024-04-22] MEDS: nicotine 14mg patch - 24hr TD SCH (08:00)
[2024-04-22 08:12] LABS: ALANINE AMINOTRANSFERASE 48 U/L (12-78); ALBUMIN 2.1 G/DL (3.4-5.0); ALBUMIN/GLOBULIN RATIO 0.5 (1.1-1.5); ALKALINE PHOSPHATASE 172 IU/L (46-116); ANION GAP 9 (8-16); ASPARTATE AMINO TRANSFERASE 111 U/L (10-37); BILIRUBIN,TOTAL 0.3 MG/DL (0.1-1.0); BLOOD UREA NITROGEN 9 MG/DL (7-18); BUN/CREATININE RATIO 16.4 (10.0-20.0); CALCIUM 8.6 MG/DL (8.5-10.1); CHLORIDE 103 MMOL/L (99-107); CREATININE 0.55 MG/DL (0.40-0.90); MAGNESIUM 1.8 MG/DL (1.5-2.4); POTASSIUM 4.8 MMOL/L (3.5-5.1); SODIUM 134 MMOL/L (135-145); TOTAL CARBON DIOXIDE 22.5 MMOL/L (24-32); eCRCL 95 ML/MIN; eGFR > 90 ML/MIN
[2024-04-22 08:22] LABS: VANCOMYCIN,TROUGH 21.9 ug/mL (10.0-20.0)
[2024-04-22 08:23] LABS: GLUCOSE 131 MG/DL (70-104)
[2024-04-22] MEDS: levoFLOXACIN 750MG TABLET PO SCH (11:12)
[2024-04-22 13:10] VITALS: BP 133/73; PULSE 67; RESP 17; TEMP 98.7; O2SAT 97
[2024-04-22] MEDS: JUVEN Shake w/Arg/Glut/Ca2+Bmb (Juven 19.3gm) pkt 240ml PO SCH (17:54)
[2024-04-22 18:00] VITALS: BP 123/80; PULSE 102; RESP 16; TEMP 98.2; O2SAT 98
[2024-04-22 20:00] VITALS: RESP 16; O2SAT 98
[2024-04-22 22:00] VITALS: BP 128/81; PULSE 83; RESP 16; TEMP 98.2; O2SAT 98
[2024-04-23 04:55] LABS: BASOPHILS % (AUTO) 0.4 % (0-1); EOSINOPHILS # (AUTO) 0.1 X10'3 (0-0.9); EOSINOPHILS % (AUTO) 1.7 % (0-6); HEMATOCRIT 27.9 % (35.0-45.0); HEMOGLOBIN 9.3 g/dl (12.0-16.0); LYMPHOCYTES # (AUTO) 0.9 X10'3 (1.1-4.8); LYMPHOCYTES % (AUTO) 15.1 % (21-51); MEAN CORPUSCULAR HEMOGLOBIN 34.5 PG (27.0-31.0); MEAN CORPUSCULAR HGB CONC 33.3 g/dL (33.0-36.5); MEAN CORPUSCULAR VOLUME 103.6 FL (78-98); MEAN PLATELET VOLUME 7.4 FL (7.4-10.4); MONOCYTES # (AUTO) 0.9 X10'3 (0-0.9); MONOCYTES % (AUTO) 14.7 % (2-12); NEUTROPHILS % (AUTO) 68.1 % (42-75); PLATELET COUNT 215 X10'3 (140-440); RED BLOOD COUNT 2.69 X10'6 (4.20-5.60); WHITE BLOOD COUNT 5.9 X10'3 (4.5-11.0)
[2024-04-23 05:11] LABS: ALANINE AMINOTRANSFERASE 60 U/L (12-78); ALBUMIN 2.2 G/DL (3.4-5.0); ALBUMIN/GLOBULIN RATIO 0.5 (1.1-1.5); ALKALINE PHOSPHATASE 179 IU/L (46-116); ANION GAP 6 (8-16); ASPARTATE AMINO TRANSFERASE 154 U/L (10-37); BILIRUBIN,TOTAL 0.3 MG/DL (0.1-1.0); BLOOD UREA NITROGEN 14 MG/DL (7-18); BUN/CREATININE RATIO 22.6 (10.0-20.0); CALCIUM 8.7 MG/DL (8.5-10.1); CHLORIDE 101 MMOL/L (99-107); CREATININE 0.62 MG/DL (0.40-0.90); GLUCOSE 147 MG/DL (70-104); MAGNESIUM 1.3 MG/DL (1.5-2.4); POTASSIUM 5.1 MMOL/L (3.5-5.1); SODIUM 133 MMOL/L (135-145); TOTAL CARBON DIOXIDE 25.9 MMOL/L (24-32); TOTAL PROTEIN 6.3 G/DL (6.4-8.2); eCRCL 84 ML/MIN; eGFR > 90 ML/MIN
[2024-04-23 06:00] VITALS: BP 142/96; PULSE 88; RESP 15; TEMP 98.1; O2SAT 99
[2024-04-23 07:00] VITALS: RESP 16; O2SAT 100
[2024-04-23 11:08] VITALS: BP_SYST 142; PULSE 88
[2024-04-23] MEDS ORDERED: magnesium Cl slow-release 64mg tablet PO PRN (11:25)
[2024-04-23] MEDS ORDERED: DOCU100C40 PO (14:49)
[2024-04-23] MEDS ORDERED: APIX2.5T PO (14:49)
[2024-04-23] MEDS ORDERED: LEVO750T68 PO (14:49)
[2024-04-23] MEDS ORDERED: LISI20TA28 PO (14:50)
[2024-04-23 15:22] VITALS: RESP 16
[2024-04-24] MEDS ORDERED: lisinopril 20mg tablet PO SCH (08:00)
== END 2024-04-23 16:15 | disposition home or self-care (01) | DRG 907 ==
LOC: ER 13:35 → ED HOLD 17:11 → UNDOADMIN 17:11 → ED HOLD 18:50 → SUR 3N 18:50 → ED HOLD 04-18 12:17 → SUR 3N 04-18 12:17
PROVIDERS: ADMIT Family Medicine; ATTEND Family Medicine
PROC: 0S9B00Z Drainage of Left Hip Joint with Drainage Device, Open Approach (ICD-10-PCS; 2024-04-18)
PROC: 3E01329 Introduction of Other Anti-infective into Subcutaneous Tissue, Percutaneous Approach (ICD-10-PCS; principal; 2024-04-18 10:52)
DX: L76.34 Postprocedural seroma of skin and subcutaneous tissue following other procedure (principal); N17.0 Acute kidney failure with tubular necrosis; E87.1 Hypo-osmolality and hyponatremia; E87.20 Acidosis, unspecified; G89.4 Chronic pain syndrome; E86.0 Dehydration; D64.9 Anemia, unspecified; E86.1 Hypovolemia; N18.9 Chronic kidney disease, unspecified; G62.9 Polyneuropathy, unspecified; I12.9 Hypertensive chronic kidney disease with stage 1 through stage 4 chronic kidney disease, or unspecified chronic kidney disease; E83.51 Hypocalcemia; E83.42 Hypomagnesemia; F17.290 Nicotine dependence, other tobacco product, uncomplicated; Y83.8 Other surgical procedures as the cause of abnormal reaction of the patient, or of later complication, without mention of misadventure at the time of the procedure; Z79.899 Other long term (current) drug therapy; Y92.89 Other specified places as the place of occurrence of the external cause; Z79.82 Long term (current) use of aspirin; Z79.01 Long term (current) use of anticoagulants
CPT/HCPCS: 99285; Z7506; Z7508; 36415; 76881; 80048; 80053; 80202; 82948; 83735; 83880; 84100; 85025; 85610; 85730; 87070; 87075; 87077; 87081; 87186; 93005; 97116; 97161; A4618; A6258; A6402; A6449; A7000; C1713; G0378; J0690; J0696; J2250; J2270; J3010; J3260; J3370; J3372; J3475; J3480; J3490; J7030; J7040; Q0163